=== PATIENT | female | born 1940 | race Two or more races ===

== ENCOUNTER 2024-01-09 21:31 | Emergency (ER) | payer OTHER ==
[~2024-01-09] VITALS: Ht 154.9 cm; Wt 116.0 kg
[2024-01-09 22:41] VITALS: PULSE 73; RESP 16; O2SAT 96
[2024-01-09 22:48] LABS: Basophils # (auto) 0 10 ^3/uL (0-0.2); Basophils % (auto) 0.4 % (0.0-2.0); Eosinophils # (auto) 0.1 10 ^3/uL (0-0.8); Eosinophils % (auto) 1.9 % (0.0-7.0); Hematocrit 34.9 % (36.0-46.0); Hemoglobin 11.1 g/dL (12.2-16.2); Lymphocytes # (auto) 0.8 10 ^3/uL (0.4-5.4); Lymphocytes % (auto) 10.3 % (10.0-50.0); Mean Corpuscular Hemoglobin 28.7 pg (28.0-32.0); Mean Corpuscular Hgb Conc. 31.9 g/dL (32.0-36.0); Mean Corpuscular Volume 90.1 fL (80.0-100.0); Monocytes % (auto) 13.3 % (0.0-12.0); Neutrophils # (auto) 5.7 10 ^3/uL (1.6-8.6); Neutrophils % (auto) 74.1 % (37.0-80.0); Red Blood Cells 3.87 10^6/uL (4.0-5.20); Red Cell Distribution Width 16.1 % (11.8-14.3); White Blood Cell 7.7 10^3/uL (4.4-10.8)
[2024-01-09 23:00] LABS: Chloride 103 mmol/L (98-107); Potassium 4.2 mmol/L (3.5-5.1); Sodium 139 mmol/L (136-145)
[2024-01-09 23:01] LABS: Anion Gap 3 (5-15); Carbon Dioxide 33 mmol/L (20-30)
[2024-01-09 23:02] LABS: Calcium 10.3 mg/dL (8.7-10.4)
[2024-01-09 23:03] LABS: INR 1.05 (0.9-1.15); Partial Thromboplastin Time 25.1 SEC (24.5-34.5); Prothrombin Time 11.1 sec (9.3-11.8)
[2024-01-09 23:06] LABS: BUN/Creatinine Ratio 18.8 (10.0-20.0); Blood Urea Nitrogen 16 mg/dL (9-23); Glucose 81 mg/dL (74-106)
[2024-01-09 23:15] VITALS: O2SAT 91
[2024-01-10] MEDS: VANCOMYCIN 1GM/200ML 200 ML IV ONE (01:55)
[2024-01-10] MEDS: AZITHROMYCIN 250 MG TAB PO ONE (01:55)
[2024-01-10] MEDS: CEFEPIME 2GM/50ML NS 50 ML IV ONE (02:37)
[2024-01-10 04:39] VITALS: BP 150/63; PULSE 95; RESP 15; TEMP 100.6; O2SAT 96
== END 2024-01-10 04:43 | disposition short-term general hospital (02) ==
LOC: ER 21:31
DX: J18.9 Pneumonia, unspecified organism (principal); R06.02 Shortness of breath; R09.02 Hypoxemia; R53.1 Weakness; J45.909 Unspecified asthma, uncomplicated; Z98.890 Other specified postprocedural states
CPT/HCPCS: 36415; 71045; 80048; 84484; 85025; 85610; 85730; 96365; 96366; 96368; 99285; J0692; J3370